=== PATIENT | male | born 1965 | race Caucasian/White ===

== ENCOUNTER 2017-11-08 14:12 | Emergency (ER) | payer SELFPAY ==
[~2017-11-08] VITALS: Ht 165.1 cm; Wt 66.7 kg
[~2017-11-08 14:12] MED LIST: 12 HOUR DECONG120 M1 PO; HYDROMORPHONE HC2 MG PO; NORCO 5/3251 TABLET PO; PERCOCET 5/31 TABLET PO; ZANTAC150 MG PO
[2017-11-08] MEDS ORDERED: VICOPROFEN1 TABLET PO (19:55)
[2017-11-08 20:14] VITALS: BP 140/89
== END 2017-11-08 20:16 | disposition home or self-care (01) ==
LOC: EME 14:12 → EXP 14:12
PROC: 0HQ0XZZ Repair Scalp Skin, External Approach (ICD-10-PCS; principal; 2017-11-08)
DX: S01.01XA Laceration without foreign body of scalp, initial encounter (principal); S16.1XXA Strain of muscle, fascia and tendon at neck level, initial encounter; S80.01XA Contusion of right knee, initial encounter; S93.401A Sprain of unspecified ligament of right ankle, initial encounter; W11.XXXA Fall on and from ladder, initial encounter; Z53.20 Procedure and treatment not carried out because of patient's decision for unspecified reasons; K21.9 Gastro-esophageal reflux disease without esophagitis; M19.90 Unspecified osteoarthritis, unspecified site; Z85.07 Personal history of malignant neoplasm of pancreas; Z85.118 Personal history of other malignant neoplasm of bronchus and lung; F17.200 Nicotine dependence, unspecified, uncomplicated; Z79.891 Long term (current) use of opiate analgesic
CPT/HCPCS: 73564; 73610; 99281; 99284